=== PATIENT | male | born 1965 | race Caucasian/White ===

== ENCOUNTER → 2025-07-13 06:52 | Outpatient (REF) | payer OTHER, SELFPAY | LOC: RAD 06:52 | PROVIDERS: ATTENDING PHYSICIAN Internal Medicine Cardiovascular Disease; FAMILY PHYSICIAN Nurse Practitioner Family | DX: I77.819 Aortic ectasia, unspecified site (principal); I71.21 Aneurysm of the ascending aorta, without rupture | CPT/HCPCS: 71275; Q9967 ==